=== PATIENT | male | born 1965 | race Caucasian/White ===

== ENCOUNTER 2021-05-03 22:28 | Inpatient (IN) ==
[2021-05-04] MEDS ORDERED: Naloxone 0.4 MG/ML INJ IVP PRN ×2 (02:11→17:53)
[2021-05-04] MEDS ORDERED: Ondansetron 4 MG/2 ML VIAL IVP PRN ×2 (02:11→17:53)
[2021-05-04] MEDS ORDERED: *HR* LORazepam 2 MG/ML VIAL IVP PRN ×6 (02:16→17:53)
[2021-05-04] MEDS ORDERED: Thiamine (B-1) 100 MG, Folic Acid 1 MG, MVI, adult with vitamin K 10 ML in 0.9 % Sodi... IVPB SCH (06:00)
[2021-05-04 06:46] LABS: Hematocrit 37.4 % (37.5-50.1); Hemoglobin 12.5 g/dL (12.9-16.9); Mean Corpuscular HGB Conc 33.4 g/dL (31.6-35.5); Mean Corpuscular Hemoglobin 29.6 pg (28.0-33.3); Mean Corpuscular Volume 88.4 fL (83.0-100.0); Mean Platelet Volume 10.3 fL (9.4-12.4); Platelet Count 188 K/mcL (140-400); Red Blood Count 4.23 M/mcL (4.19-5.50); Red Cell Distribution Width 13.2 % (11.5-14.5); Segmented Neutrophils % 76.8 %; White Blood Count 8.9 K/mcL (4.3-11.1)
[2021-05-04 06:47] LABS: Basophils % 0.4 %; Eosinophils # 0.1 K/mcL (0.0-0.6); Eosinophils % 1.1 %; Immature Granulocytes % 1.1 % (0-4); Lymphocytes # 0.8 K/mcL (0.6-4.6); Monocytes % 11.6 %; Neutrophils # 6.8 K/mcL (1.6-8.9)
[2021-05-04 06:54] LABS: INR 1.1; Prothrombin Time 12.4 Seconds (9.4-12.1)
[2021-05-04 07:06] LABS: Alanine Aminotransferase 13 Units/L (7-52); Albumin 3.9 g/dL (3.5-5.7); Albumin/Globulin Ratio 1.6 (1.1-2.2); Alkaline Phosphatase 59 Units/L (34-104); Aspartate Amino Transferase 15 Units/L (13-39); BUN/Creatinine Ratio 9 (6-26); Bilirubin,Total 0.5 mg/dL (0.3-1.0); Blood Urea Nitrogen 7 mg/dL (6-20); Calcium 8.3 mg/dL (8.6-10.3); Carbon Dioxide 24 mEq/L (23-29); Chloride 94 mEq/L (98-107); Globulin 2.4 g/dL (2.4-3.5); Glucose 133 mg/dL (70-105); Osmolality,Calculated 258 (280-300); Phosphorous 2.8 mg/dL (2.7-4.5); Potassium 4.2 mEq/L (3.5-5.1); Sodium 124 mEq/L (136-145); Total Protein 6.3 g/dL (6.4-8.9); eGFR For African Americans > 60 (> 60); eGFR For Non-African Americans > 60 (> 60)
[2021-05-04] MEDS ORDERED: 0.9 % Sodium Chloride 1,000 ML IVC SCH (07:45)
[2021-05-04] MEDS ORDERED: Divalproex (12 HR) 500 MG TABLET PO SCH (09:00)
[2021-05-04 11:54] LABS: BUN/Creatinine Ratio 9 (6-26); Blood Urea Nitrogen 7 mg/dL (6-20); Calcium 8.5 mg/dL (8.6-10.3); Carbon Dioxide 27 mEq/L (23-29); Chloride 96 mEq/L (98-107); Glucose 128 mg/dL (70-105); Osmolality,Calculated 268 (280-300); Potassium 4.2 mEq/L (3.5-5.1); Sodium 129 mEq/L (136-145); eGFR For African Americans > 60 (> 60); eGFR For Non-African Americans > 60 (> 60)
[2021-05-04] MEDS ORDERED: Famotidine 20 MG/2 ML VIAL IVP ONE (13:38)
[2021-05-04] MEDS ORDERED: Acetaminophen IV 1,000 MG/100 ML BAG IVPB ONE ×2 (13:38→17:53)
[2021-05-04 13:45] LABS: Bilirubin,Urine Negative (Negative); Blood,Urine Negative (Negative); Clarity,Urine Clear (Clear); Color,Urine Colorless (Yellow); Glucose,Urine (UA) Normal (Normal); Ketones,Urine Negative (Negative); Leukocyte Esterase,Urine Negative (Negative); Nitrite,Urine Negative (Negative); PH,Urine 6.5 pH Units (5.0-8.0); Protein,Urine Negative (Neg-Trace); Specific Gravity,Urine 1.007 (1.010-1.025); Urobilinogen,Urine Normal (Normal)
[2021-05-04] MEDS ORDERED: *HR* FentaNYL (PF) 100 MCG/2 ML VIAL ONE (14:11)
[2021-05-04] MEDS ORDERED: Ropivacaine/PF 0.5% 30 ML VIAL ONE (14:11)
[2021-05-04] MEDS ORDERED: *HR* Midazolam HCl 2 MG/2 ML VIAL ONE (14:11)
[2021-05-04] MEDS ORDERED: ROPIVACAINE/PF/NS 0.25% 1 EACH SYRINGE INTRAART ONE (14:12)
[2021-05-04] MEDS ORDERED: Lidocaine -MPF 2% 5 ML VIAL ONE (14:29)
[2021-05-04] MEDS ORDERED: Ondansetron 4 MG/2 ML VIAL ONE (14:29)
[2021-05-04] MEDS ORDERED: *HR* Propofol 200 MG/20 ML VIAL IVP ONE (14:29)
[2021-05-04] MEDS ORDERED: Lidocaine HCL 4 ML Topical Solution (Laryng-O-Jet Kit Sterile Pak) TP ONE (15:00)
[2021-05-04] MEDS ORDERED: *HR* Succinylcholine 200 MG/10 ML VIAL IVP ONE (15:00)
[2021-05-04 18:59] LABS: BUN/Creatinine Ratio 7 (6-26); Blood Urea Nitrogen 7 mg/dL (6-20); Calcium 8.3 mg/dL (8.6-10.3); Carbon Dioxide 25 mEq/L (23-29); Chloride 98 mEq/L (98-107); Glucose 182 mg/dL (70-105); Osmolality,Calculated 271 (280-300); Potassium 4.6 mEq/L (3.5-5.1); Sodium 129 mEq/L (136-145); eGFR For African Americans > 60 (> 60); eGFR For Non-African Americans > 60 (> 60)
[2021-05-04] MEDS: Thiamine (B-1) 100 MG, Folic Acid 1 MG, MVI, adult with vitamin K 10 ML in 0.9 % Sodi... IVPB SCH (20:09)
[2021-05-04] MEDS: OLANZapine 10 MG TAB.RAPDIS PO SCH (20:10)
[2021-05-04] MEDS: Divalproex (12 HR) 500 MG TABLET PO SCH (20:10)
[2021-05-04] MEDS: risperiDONE 1 MG TABLET PO SCH (20:10)
[2021-05-04] MEDS: diazePAM 5 MG TABLET PO SCH (20:10)
[2021-05-04] MEDS: traZODone 50 MG TABLET PO SCH (21:44)
[2021-05-05 07:51] LABS: Basophils % 0.3 %; Hematocrit 36.8 % (37.5-50.1); Immature Granulocytes % 0.7 % (0-4); Lymphocytes # 0.6 K/mcL (0.6-4.6); Lymphocytes % 6.1 %; Mean Corpuscular HGB Conc 32.6 g/dL (31.6-35.5); Mean Corpuscular Hemoglobin 29.9 pg (28.0-33.3); Mean Corpuscular Volume 91.5 fL (83.0-100.0); Mean Platelet Volume 11.1 fL (9.4-12.4); Monocytes % 9.2 %; Neutrophils # 8.6 K/mcL (1.6-8.9); Platelet Count 206 K/mcL (140-400); Red Blood Count 4.02 M/mcL (4.19-5.50); Red Cell Distribution Width 13.3 % (11.5-14.5); Segmented Neutrophils % 83.7 %; White Blood Count 10.3 K/mcL (4.3-11.1)
[2021-05-05 08:12] LABS: BUN/Creatinine Ratio 13 (6-26); Blood Urea Nitrogen 13 mg/dL (6-20); Calcium 8.9 mg/dL (8.6-10.3); Carbon Dioxide 27 mEq/L (23-29); Chloride 97 mEq/L (98-107); Glucose 130 mg/dL (70-105); Osmolality,Calculated 274 (280-300); Potassium 4.6 mEq/L (3.5-5.1); Sodium 131 mEq/L (136-145); eGFR For African Americans > 60 (> 60); eGFR For Non-African Americans > 60 (> 60)
[2021-05-05] MEDS: Venlafaxine XR (24 HR) 150 MG CAP.ER.24H PO SCH (08:15)
[2021-05-05] MEDS: risperiDONE 1 MG TABLET PO SCH ×2 (08:15→21:55)
[2021-05-05] MEDS: diazePAM 5 MG TABLET PO SCH ×2 (08:16→21:55)
[2021-05-05] MEDS: Aspirin 81 MG TAB.CHEW PO SCH (08:16)
[2021-05-05] MEDS: lisinopriL 10 MG TABLET PO SCH (08:16)
[2021-05-05] MEDS: Divalproex (12 HR) 500 MG TABLET PO SCH ×2 (08:16→21:55)
[2021-05-05] MEDS: OLANZapine 10 MG TAB.RAPDIS PO SCH ×2 (08:16→21:55)
[2021-05-05] MEDS ORDERED: Folic Acid 1 MG TABLET PO SCH (09:00)
[2021-05-05 16:01] LABS: BUN/Creatinine Ratio 18 (6-26); Blood Urea Nitrogen 16 mg/dL (6-20); Calcium 8.6 mg/dL (8.6-10.3); Carbon Dioxide 27 mEq/L (23-29); Chloride 99 mEq/L (98-107); Glucose 140 mg/dL (70-105); Osmolality,Calculated 277 (280-300); Sodium 132 mEq/L (136-145); eGFR For African Americans > 60 (> 60); eGFR For Non-African Americans > 60 (> 60)
[2021-05-05] MEDS: cephALEXin 500 MG CAPSULE PO SCH ×2 (16:46→21:55)
[2021-05-05] MEDS: Thiamine (B-1) 100 MG, Folic Acid 1 MG, MVI, adult with vitamin K 10 ML in 0.9 % Sodi... IVPB SCH (17:12)
[2021-05-05] MEDS: traZODone 50 MG TABLET PO SCH (21:56)
[2021-05-06 07:53] LABS: Basophils # 0.1 K/mcL (0.0-0.2); Basophils % 0.8 %; Eosinophils # 0.2 K/mcL (0.0-0.6); Eosinophils % 2.4 %; Hematocrit 33.6 % (37.5-50.1); Hemoglobin 10.9 g/dL (12.9-16.9); Immature Granulocytes % 1.2 % (0-4); Lymphocytes # 1.2 K/mcL (0.6-4.6); Lymphocytes % 14.2 %; Mean Corpuscular HGB Conc 32.4 g/dL (31.6-35.5); Mean Corpuscular Hemoglobin 29.5 pg (28.0-33.3); Mean Corpuscular Volume 91.1 fL (83.0-100.0); Mean Platelet Volume 10.8 fL (9.4-12.4); Monocytes # 0.9 K/mcL (0.0-1.3); Monocytes % 10.4 %; Neutrophils # 5.9 K/mcL (1.6-8.9); Platelet Count 151 K/mcL (140-400); Red Blood Count 3.69 M/mcL (4.19-5.50); Red Cell Distribution Width 13.5 % (11.5-14.5); White Blood Count 8.3 K/mcL (4.3-11.1)
[2021-05-06] MEDS: risperiDONE 1 MG TABLET PO SCH ×2 (08:01→21:48)
[2021-05-06] MEDS: cephALEXin 500 MG CAPSULE PO SCH ×4 (08:01→21:48)
[2021-05-06] MEDS: lisinopriL 10 MG TABLET PO SCH (08:02)
[2021-05-06] MEDS: OLANZapine 10 MG TAB.RAPDIS PO SCH ×2 (08:02→21:48)
[2021-05-06] MEDS: diazePAM 5 MG TABLET PO SCH ×2 (08:02→21:48)
[2021-05-06] MEDS: Divalproex (12 HR) 500 MG TABLET PO SCH ×2 (08:02→21:54)
[2021-05-06] MEDS: Venlafaxine XR (24 HR) 150 MG CAP.ER.24H PO SCH (08:02)
[2021-05-06] MEDS: Aspirin 81 MG TAB.CHEW PO SCH (08:02)
[2021-05-06 08:08] LABS: BUN/Creatinine Ratio 18 (6-26); Blood Urea Nitrogen 14 mg/dL (6-20); Calcium 8.2 mg/dL (8.6-10.3); Carbon Dioxide 29 mEq/L (23-29); Chloride 99 mEq/L (98-107); Glucose 101 mg/dL (70-105); Osmolality,Calculated 277 (280-300); Potassium 4.1 mEq/L (3.5-5.1); Sodium 133 mEq/L (136-145); eGFR For African Americans > 60 (> 60); eGFR For Non-African Americans > 60 (> 60)
[2021-05-06 08:58] LABS: Magnesium 1.7 mg/dL (1.6-2.6)
[2021-05-06] MEDS: *HR* Rivaroxaban 10 MG TABLET PO SCH (16:33)
[2021-05-06] MEDS: traZODone 50 MG TABLET PO SCH (21:48)
[2021-05-07 06:43] LABS: Hematocrit 33.9 % (37.5-50.1); Hemoglobin 10.9 g/dL (12.9-16.9); Mean Corpuscular HGB Conc 32.2 g/dL (31.6-35.5); Mean Corpuscular Hemoglobin 29.6 pg (28.0-33.3); Mean Corpuscular Volume 92.1 fL (83.0-100.0); Mean Platelet Volume 10.6 fL (9.4-12.4); Platelet Count 185 K/mcL (140-400); Red Blood Count 3.68 M/mcL (4.19-5.50); Red Cell Distribution Width 13.4 % (11.5-14.5); White Blood Count 7.9 K/mcL (4.3-11.1)
[2021-05-07 07:00] LABS: BUN/Creatinine Ratio 18 (6-26); Blood Urea Nitrogen 15 mg/dL (6-20); Calcium 8.3 mg/dL (8.6-10.3); Carbon Dioxide 30 mEq/L (23-29); Chloride 99 mEq/L (98-107); Glucose 104 mg/dL (70-105); Osmolality,Calculated 281 (280-300); Potassium 4.1 mEq/L (3.5-5.1); Sodium 135 mEq/L (136-145); eGFR For African Americans > 60 (> 60); eGFR For Non-African Americans > 60 (> 60)
[2021-05-07] MEDS: risperiDONE 1 MG TABLET PO SCH ×2 (08:31→22:16)
[2021-05-07] MEDS: Venlafaxine XR (24 HR) 150 MG CAP.ER.24H PO SCH (08:31)
[2021-05-07] MEDS: OLANZapine 10 MG TAB.RAPDIS PO SCH ×2 (08:31→22:16)
[2021-05-07] MEDS: Aspirin 81 MG TAB.CHEW PO SCH (08:32)
[2021-05-07] MEDS: Folic Acid 1 MG TABLET PO SCH (08:32)
[2021-05-07] MEDS: diazePAM 5 MG TABLET PO SCH ×2 (08:32→22:16)
[2021-05-07] MEDS: lisinopriL 10 MG TABLET PO SCH (08:32)
[2021-05-07] MEDS: Divalproex (12 HR) 500 MG TABLET PO SCH ×2 (08:32→23:07)
[2021-05-07] MEDS: cephALEXin 500 MG CAPSULE PO SCH ×4 (08:32→22:16)
[2021-05-07] MEDS: *HR* Rivaroxaban 10 MG TABLET PO SCH (15:41)
[2021-05-07] MEDS: traZODone 50 MG TABLET PO SCH (22:16)
[2021-05-08 02:09] LABS: Hemoglobin 11.2 g/dL (12.9-16.9); Mean Corpuscular Hemoglobin 29.6 pg (28.0-33.3); Mean Corpuscular Volume 92.6 fL (83.0-100.0); Mean Platelet Volume 10.2 fL (9.4-12.4); Platelet Count 201 K/mcL (140-400); Red Blood Count 3.78 M/mcL (4.19-5.50); Red Cell Distribution Width 13.4 % (11.5-14.5); White Blood Count 9.8 K/mcL (4.3-11.1)
[2021-05-08 02:40] LABS: BUN/Creatinine Ratio 22 (6-26); Blood Urea Nitrogen 17 mg/dL (6-20); Calcium 8.5 mg/dL (8.6-10.3); Carbon Dioxide 26 mEq/L (23-29); Chloride 98 mEq/L (98-107); Glucose 145 mg/dL (70-105); Osmolality,Calculated 276 (280-300); Potassium 3.8 mEq/L (3.5-5.1); Sodium 131 mEq/L (136-145); eGFR For African Americans > 60 (> 60); eGFR For Non-African Americans > 60 (> 60)
[2021-05-08] MEDS: OLANZapine 10 MG TAB.RAPDIS PO SCH ×2 (09:26→20:53)
[2021-05-08] MEDS: Venlafaxine XR (24 HR) 150 MG CAP.ER.24H PO SCH (09:26)
[2021-05-08] MEDS: risperiDONE 1 MG TABLET PO SCH ×2 (09:26→20:53)
[2021-05-08] MEDS: lisinopriL 10 MG TABLET PO SCH (09:27)
[2021-05-08] MEDS: cephALEXin 500 MG CAPSULE PO SCH ×4 (09:27→20:53)
[2021-05-08] MEDS: Aspirin 81 MG TAB.CHEW PO SCH (09:27)
[2021-05-08] MEDS: Divalproex (12 HR) 500 MG TABLET PO SCH ×2 (09:27→20:52)
[2021-05-08] MEDS: Folic Acid 1 MG TABLET PO SCH (09:27)
[2021-05-08] MEDS: diazePAM 5 MG TABLET PO SCH ×2 (09:27→20:52)
[2021-05-08] MEDS: *HR* Rivaroxaban 10 MG TABLET PO SCH (17:30)
[2021-05-08] MEDS: traZODone 50 MG TABLET PO SCH (20:53)
[2021-05-09 04:54] LABS: Hematocrit 34.5 % (37.5-50.1); Hemoglobin 11.5 g/dL (12.9-16.9); Mean Corpuscular HGB Conc 33.3 g/dL (31.6-35.5); Mean Corpuscular Hemoglobin 30.3 pg (28.0-33.3); Mean Platelet Volume 10.2 fL (9.4-12.4); Platelet Count 221 K/mcL (140-400); Red Blood Count 3.79 M/mcL (4.19-5.50); Red Cell Distribution Width 13.3 % (11.5-14.5); White Blood Count 9.5 K/mcL (4.3-11.1)
[2021-05-09 05:15] LABS: BUN/Creatinine Ratio 21 (6-26); Blood Urea Nitrogen 15 mg/dL (6-20); Carbon Dioxide 27 mEq/L (23-29); Chloride 98 mEq/L (98-107); Glucose 135 mg/dL (70-105); Osmolality,Calculated 277 (280-300); Potassium 4.2 mEq/L (3.5-5.1); Sodium 132 mEq/L (136-145); eGFR For African Americans > 60 (> 60); eGFR For Non-African Americans > 60 (> 60)
[2021-05-09] MEDS: cephALEXin 500 MG CAPSULE PO SCH ×4 (08:35→20:08)
[2021-05-09] MEDS: Divalproex (12 HR) 500 MG TABLET PO SCH ×2 (08:36→20:08)
[2021-05-09] MEDS: Aspirin 81 MG TAB.CHEW PO SCH (08:36)
[2021-05-09] MEDS: Folic Acid 1 MG TABLET PO SCH (08:36)
[2021-05-09] MEDS: Venlafaxine XR (24 HR) 150 MG CAP.ER.24H PO SCH (08:36)
[2021-05-09] MEDS: OLANZapine 10 MG TAB.RAPDIS PO SCH ×2 (08:36→20:08)
[2021-05-09] MEDS: diazePAM 5 MG TABLET PO SCH ×2 (08:36→20:08)
[2021-05-09] MEDS: risperiDONE 1 MG TABLET PO SCH ×2 (08:37→20:53)
[2021-05-09] MEDS: lisinopriL 10 MG TABLET PO SCH (08:37)
[2021-05-09] MEDS: *HR* Rivaroxaban 10 MG TABLET PO SCH (17:06)
[2021-05-09] MEDS: traZODone 50 MG TABLET PO SCH (20:08)
[2021-05-10] MEDS: lisinopriL 10 MG TABLET PO SCH (08:01)
[2021-05-10] MEDS: OLANZapine 10 MG TAB.RAPDIS PO SCH ×2 (08:02→19:33)
[2021-05-10] MEDS: Divalproex (12 HR) 500 MG TABLET PO SCH ×2 (08:02→19:33)
[2021-05-10] MEDS: Aspirin 81 MG TAB.CHEW PO SCH (08:02)
[2021-05-10] MEDS: cephALEXin 500 MG CAPSULE PO SCH ×3 (08:02→16:49)
[2021-05-10] MEDS: Venlafaxine XR (24 HR) 150 MG CAP.ER.24H PO SCH (08:02)
[2021-05-10] MEDS: risperiDONE 1 MG TABLET PO SCH ×2 (08:02→20:54)
[2021-05-10] MEDS: diazePAM 5 MG TABLET PO SCH ×2 (08:02→19:33)
[2021-05-10] MEDS: Folic Acid 1 MG TABLET PO SCH (08:02)
[2021-05-10] MEDS: *HR* Rivaroxaban 10 MG TABLET PO SCH (16:49)
[2021-05-10] MEDS: traZODone 50 MG TABLET PO SCH (19:33)
[2021-05-11] MEDS: Aspirin 81 MG TAB.CHEW PO SCH (10:20)
[2021-05-11] MEDS: diazePAM 5 MG TABLET PO SCH (10:20)
[2021-05-11] MEDS: lisinopriL 10 MG TABLET PO SCH (10:20)
[2021-05-11] MEDS: risperiDONE 1 MG TABLET PO SCH (10:21)
[2021-05-11] MEDS: Folic Acid 1 MG TABLET PO SCH (10:21)
[2021-05-11] MEDS: OLANZapine 10 MG TAB.RAPDIS PO SCH (10:21)
[2021-05-11] MEDS: Venlafaxine XR (24 HR) 150 MG CAP.ER.24H PO SCH (10:21)
[2021-05-11] MEDS: Divalproex (12 HR) 500 MG TABLET PO SCH (10:21)
[2021-05-11 11:16] VITALS: BP 181/90; PULSE 94; TEMP 99.1; O2SAT 95
[2021-05-11 15:41] LABS: Influenza A PCR Negative (Negative); Influenza B PCR Negative (Negative); Resp. Syncytial Virus PCR Negative (Negative)
[2021-05-11 16:27] LABS: SARS-CoV-2 by PCR (In House) Negative (Negative)
[2021-05-11] MEDS: *HR* Rivaroxaban 10 MG TABLET PO SCH (17:00)
== END 2021-05-12 05:03 | DRG 493 ==
LOC: 4WAOSI → SUATTDRO 05-04 01:53
PROVIDERS: ADMIT Family Medicine; ATTEND Family Medicine